=== PATIENT | female | born 2000 | race Caucasian/White ===

== ENCOUNTER 2020-06-26 09:45 | Emergency (ER) | payer OTHER ==
[~2020-06-26] VITALS: Ht 172.7 cm; Wt 56.7 kg
[2020-06-26] MEDS ORDERED: ESCI10TA PO (09:54)
--- NOTE | 2020-06-26 09:56 | NUR ---
PT IS IN ROOM #1B. DR GIMENEZ EVALUATED THE PT.
--- NOTE | 2020-06-26 10:28 | NUR ---
PT WAS D/C'd TO HOME. D/C INSTRUCTIONS GIVEN TO THE PT BY DR GIMENEZ.
[2020-06-26 10:30] VITALS: BP 116/66
== END 2020-06-26 10:31 | disposition home or self-care (01) ==
LOC: ER 09:45
DX: R55 Syncope and collapse (principal); F41.9 Anxiety disorder, unspecified; Z79.899 Other long term (current) drug therapy
CPT/HCPCS: A4663